=== PATIENT | male | born 1960 | race Caucasian/White ===

== ENCOUNTER → 2016-11-17 | Day surgery (SDC) | payer BC ==
[~2016-11-17] VITALS: Ht 170.2 cm; Wt 70.3 kg
[~2016-11-17] MED LIST: BACITRACIN PWD 50,000 UNITS VIAL As Ordered ONE; BUPIVACAINE HCL 0.5% 30 ML VIAL As Ordered ONE; GLYCOPYRROLATE INJ 0.2 MG/ML 2 ML VIAL As Ordered ONE; LIDOCAINE 2% INJ 100 MG/5 ML SDV (FOR ANES.) As Ordered ONE; LIDOCAINE 2% MDV 20 ML VIAL As Ordered ONE; LR 1,000 ML IV SCH; METOCLOPRAMIDE INJ 10MG/2ML VIAL (J2765) As Ordered ONE; METOCLOPRAMIDE INJ 10MG/2ML VIAL (J2765) IV PRN; MIDAZOLAM INJ 2 MG/2 ML VIAL (J2250) As Ordered ONE; MULT1TAB11 PO; NEOSPORIN GU IRRIG 20 ML VIAL As Ordered ONE; NEOSTIGMINE 1MG/ML 5 ML SYRINGE (J2710) As Ordered ONE; ONDANSETRON 4MG/2ML VIAL (J2405) As Ordered ONE; ONDANSETRON 4MG/2ML VIAL (J2405) IV PRN; PERCOCET 5MG/325MG TAB As Ordered ONE; PRAV10TA PO; PREV30CA11 PO; PROPOFOL 200 MG/20 ML VIAL As Ordered ONE; ROCURONIUM BROMIDE 50 MG/5 ML VIAL As Ordered ONE; SEVOFLURANE INHAL SOLN 250 ML BTL As Ordered ONE; SUCCINYLCHOLINE 100 MG/5 ML SYRINGE (J0330) As Ordered ONE; dexameTHASONE 4 MG/ML 1ML VIAL (J1100) As Ordered ONE; fentaNYL 100 MCG/2 ML INJECTION (J3010) As Ordered ONE; fentaNYL 100 MCG/2 ML INJECTION (J3010) IV PRN
[2016-11-17] MEDS: PERCOCET 5MG/325MG TAB PO PRN ×2 (10:44→11:45)
[2016-11-17 13:10] VITALS: BP 138/74
--- NOTE | 2016-11-18 13:04 | RO ---
DATE OF PROCEDURE: 11/17/2016 PREPROCEDURE DIAGNOSIS: 1. Peroneal tendinitis left ankle. 2. Lateral ankle instability left ankle. POSTPROCEDURE DIAGNOSIS: Same PROCEDURE: TENOLYSIS PERONEAL TENDONS LEFT ANKLE Brostrum lateral ankle stabliliztion left ankle: SURGEON: Dr. Scotty Fernandes DPM CORONER/MEDICAL EXAMINER: None. ANESTHESIA: General. IRRIGATION: Dilute bacitracin, neomycin and polymyxin B solution. HEMOSTASIS: Thigh pneumatic tourniquet at 300 mmHg for 51 minutes. IMPLANTS UTILIZED: None. ESTIMATED BLOOD LOSS: 5 mL. DESCRIPTION OF OPERATION: On 11/17/2016, this 56-year-old white male was taken from his hospital room to the operating room and placed in the right lateral decubitus position after general anesthesia was obtained and the following procedure was performed: TENOLYSIS PERONEAL TENDONS LEFT ANKLE: Attention was directed to the patient's left ankle where a lateral incision was placed extending from the peroneal tendons extending inferior over the fibula and ending at the peroneal tendons. The incision was deepened through the subcutaneous tissues and all coursing venous tributaries were identified, underscored, clamped, cut, ligated, electrocoagulated as necessary. Dissection was carried down to the level of the peroneal tendons where an incision was made in the peroneal tendon sheath. The tendon was then followed along the superior common sheath and then into its tunnels into the superior and inferior peroneal tunnels. The tendon was not torn. There was some thickening of the tendon sheath which was debrided. No other abnormalities were noted of the peroneal tendons. They were irrigated with copious amounts of dilute bacitracin, neomycin and polymyxin B solution. Brostrum lateral ankle stabliliztion left ankle: Attention was then directed to the lateral ankle where the peroneal tendons were pulled in an inferior direction and the calcaneofibular ligament was noted to be elongated. Calcaneofibular ligament was then transected. Attention was directed to the anterior talofibular ligament which was noted to be remarkably attenuated and stretched contributing to the major deformity of his anterior ankle. This was then cut. Some of the ATF was noted to be in the joint itself and this was flapped up and debrided as needed. A repair of the anterior talofibular ligament was then made with #2 FiberWire and a pants over vest closure. Similarly the calcaneofibular ligament was repaired with a pants over vest closure with #2 FiberWire. Ankle was held on an everted position. The Page modification was then obtained with #2-0 FiberWire anchoring the inferior peroneal retinaculum to the fibula contributing to stabilizing the ankle. The wound was flushed with copious amounts of dilute bacitracin, neomycin and polymyxin B solution. Peroneal tendon sheath was repaired with #4-0 Monocryl in a simple interrupted type fashion. Skin incisions were coapted and maintained using #4-0 Prolene in a simple interrupted and horizontal mattress type fashion. Sterile dressing was applied consisting of Adaptic, 4x4, 4x4 splint and Kerlix. A well molded fiberglass cast was then placed with the foot held right angle to the leg and the foot and ankle region everted. Patient having apparently tolerated the procedure well was taken from the OR to the recovery room with vital signs stable, patient afebrile for further monitoring by the anesthesia department. All surgical specimens removed during the operative procedure were sent to pathology for gross and microscopic examination. Postoperative instructions were given upon discharge. EVANS
== END ==
LOC: M SDC 06:27
PROVIDERS: ATTEND Podiatrist
DX: M76.72 Peroneal tendinitis, left leg (principal); M25.372 Other instability, left ankle; M79.672 Pain in left foot; E78.5 Hyperlipidemia, unspecified; K21.9 Gastro-esophageal reflux disease without esophagitis; K57.92 Diverticulitis of intestine, part unspecified, without perforation or abscess without bleeding; M54.9 Dorsalgia, unspecified; Z79.899 Other long term (current) drug therapy; Z91.013 Allergy to seafood; Z88.2 Allergy status to sulfonamides; Z88.8 Allergy status to other drugs, medicaments and biological substances
CPT/HCPCS: 27680; 27698; 97116; J0330; J0690; J1100; J2250; J2405; J2710; J2765; J3010